=== PATIENT | male | born 1975 | race Two or more races ===

== ENCOUNTER 2020-03-17 17:20 | Inpatient (IN) | payer OTHER ==
[~2020-03-17] VITALS: Ht 177.8 cm; Wt 98.7 kg
[2020-03-17 18:58] LABS: Eosinophils # (auto) 0 10 ^3/uL (0-0.8); Eosinophils % (auto) 0.2 % (0.0-7.0); Hematocrit 30.7 % (41.0-53.0); Hemoglobin 10.4 g/dL (13.5-17.5); Lymphocytes # (auto) 0.7 10 ^3/uL (0.4-5.4); Monocytes # (auto) 0.7 10 ^3/uL (0-1.3); White Blood Cell 15.1 10^3/uL (4.4-10.8)
[2020-03-17 19:00] LABS: Basophils # (auto) 0.1 10 ^3/uL (0-0.2); Basophils % (auto) 0.5 % (0.0-2.0); Lymphocytes % (auto) 4.4 % (10.0-50.0); Mean Corpuscular Hemoglobin 27.8 pg (28.0-32.0); Mean Corpuscular Hgb Conc. 33.7 g/dL (32.0-36.0); Mean Corpuscular Volume 82.6 fL (80.0-100.0); Monocytes % (auto) 4.8 % (0.0-12.0); Neutrophils # (auto) 13.5 10 ^3/uL (1.6-8.6); Neutrophils % (auto) 90.1 % (37.0-80.0); Platelet Count (auto) 611 10^3/uL (140-450); Red Blood Cells 3.72 10^6/uL (4.5-5.90); Red Cell Distribution Width 14.2 % (11.8-14.3)
[2020-03-17 19:15] LABS: Albumin 2.5 g/dL (3.4-5.0); Anion Gap 8 (5-15); Blood Urea Nitrogen 14 mg/dL (7-18); Carbon Dioxide 27 mmol/L (21-32); Chloride 101 mmol/L (98-107); Glucose 323 mg/dL (74-106); Sodium 136 mmol/L (136-145)
[2020-03-17 19:22] LABS: Alanine Aminotransferase 11 U/L (16-61); Alkaline Phosphatase 152 U/L (45-117); Aspartate Aminotransferase 11 U/L (15-37); Bilirubin, Total 0.4 mg/dL (0.2-1.0); GFR African American 70 mL/min; GFR Non-African American 58 mL/min
[2020-03-17 19:26] LABS: Potassium 2.5 mmol/L (3.5-5.1)
[2020-03-17] MEDS ORDERED: SODIUM CHLORIDE 0.9% 1,000 ML IV ONE (21:00)
[2020-03-17] MEDS ORDERED: ONDANSETRON HCL 4 MG/2 ML VIAL IV ONE (21:00)
[2020-03-17] MEDS ORDERED: SOD CHL 0.9%/ KCL 40MEQ 1,000 ML IV ONE (21:45)
[2020-03-17] MEDS ORDERED: POTASSIUM CHL 20 Meq TABLET PO ONE (21:45)
[2020-03-17 21:52] LABS: Basophils # (auto) 0.1 10 ^3/uL (0-0.2); Basophils % (auto) 0.4 % (0.0-2.0); Eosinophils # (auto) 0 10 ^3/uL (0-0.8); Eosinophils % (auto) 0.1 % (0.0-7.0); Hematocrit 28.7 % (41.0-53.0); Hemoglobin 9.6 g/dL (13.5-17.5); Lymphocytes # (auto) 1.1 10 ^3/uL (0.4-5.4); Mean Corpuscular Hemoglobin 27.8 pg (28.0-32.0); Mean Corpuscular Hgb Conc. 33.5 g/dL (32.0-36.0); Mean Corpuscular Volume 82.9 fL (80.0-100.0); Monocytes # (auto) 0.7 10 ^3/uL (0-1.3); Monocytes % (auto) 5.5 % (0.0-12.0); Neutrophils # (auto) 11.6 10 ^3/uL (1.6-8.6); Platelet Count (auto) 550 10^3/uL (140-450); Red Blood Cells 3.46 10^6/uL (4.5-5.90); Red Cell Distribution Width 14.4 % (11.8-14.3); White Blood Cell 13.5 10^3/uL (4.4-10.8)
[2020-03-17 22:10] LABS: Albumin 2.4 g/dL (3.4-5.0); BUN/Creatinine Ratio 10.1; Calcium 8.5 mg/dL (8.5-10.1); Magnesium 1.7 mg/dL (1.6-2.6)
[2020-03-17 22:13] LABS: Bilirubin, Total 0.3 mg/dL (0.2-1.0); Total Protein 7.6 g/dL (6.4-8.2)
[2020-03-17 22:17] LABS: Potassium 2.4 mmol/L (3.5-5.1)
[2020-03-18] MEDS ORDERED: DOCUSATE SOD 100 MG CAP PO PRN (05:15)
[2020-03-18] MEDS ORDERED: ONDANSETRON HCL 4 MG/2 ML VIAL IV PRN (05:15)
[2020-03-18] MEDS ORDERED: ACETAMINOPHEN 325 MG TAB PO PRN (05:15)
[2020-03-18] MEDS ORDERED: MORPHINE SULF INJ 2 MG/ML SYRINGE 1ML IV PRN (05:15)
[2020-03-18] MEDS ORDERED: NITROGLYCERIN 0.4 MG SL TAB SL PRN (05:15)
[2020-03-18] MEDS ORDERED: DEXTROSE (50%) 50ML SYRG IV PRN ×2 (05:15→11:30)
[2020-03-18] MEDS ORDERED: ALBUMIN 5% 50 ML IV ONE (05:15)
[2020-03-18] MEDS ORDERED: SODIUM CHLORIDE 0.9% 1,000 ML IV SCH (05:15)
[2020-03-18] MEDS ORDERED: ALBUMIN 5% 250 ML IV ONE (06:04)
[2020-03-18] MEDS ORDERED: ACCU-CHEK COMFORT CURVE STRIP VI SCH (08:00)
[2020-03-18] MEDS ORDERED: InsuLIN REG 1unit/0.01ml Soln (100units/ml) SC SCH (08:00)
[2020-03-18 08:37] LABS: Basophils # (auto) 0 10 ^3/uL (0-0.2); Basophils % (auto) 0.6 % (0.0-2.0); Hemoglobin 9.3 g/dL (13.5-17.5); Lymphocytes # (auto) 1.2 10 ^3/uL (0.4-5.4); Red Cell Distribution Width 14.5 % (11.8-14.3)
[2020-03-18 08:38] LABS: Eosinophils # (auto) 0 10 ^3/uL (0-0.8); Eosinophils % (auto) 0.5 % (0.0-7.0); Hematocrit 27.6 % (41.0-53.0); Lymphocytes % (auto) 15.1 % (10.0-50.0); Mean Corpuscular Hgb Conc. 33.8 g/dL (32.0-36.0); Mean Corpuscular Volume 82.8 fL (80.0-100.0); Monocytes # (auto) 0.7 10 ^3/uL (0-1.3); Monocytes % (auto) 8.5 % (0.0-12.0); Neutrophils # (auto) 5.8 10 ^3/uL (1.6-8.6); Neutrophils % (auto) 75.3 % (37.0-80.0); Platelet Count (auto) 499 10^3/uL (140-450); Red Blood Cells 3.34 10^6/uL (4.5-5.90); White Blood Cell 7.7 10^3/uL (4.4-10.8)
[2020-03-18 08:56] LABS: Alanine Aminotransferase 12 U/L (16-61); Albumin 2.1 g/dL (3.4-5.0); Alkaline Phosphatase 136 U/L (45-117); Anion Gap 6 (5-15); Aspartate Aminotransferase 10 U/L (15-37); Bilirubin, Total 0.4 mg/dL (0.2-1.0); Blood Urea Nitrogen 10 mg/dL (7-18); Calcium 7.7 mg/dL (8.5-10.1); Carbon Dioxide 25 mmol/L (21-32); Chloride 109 mmol/L (98-107); GFR African American 141 mL/min; GFR Non-African American 116 mL/min; Glucose 167 mg/dL (74-106); Sodium 140 mmol/L (136-145); Total Protein 7.1 g/dL (6.4-8.2)
[2020-03-18] MEDS: cefTRIAXone 1GM/50ML D5W 50 ML IV SCH (09:33)
[2020-03-18] MEDS ORDERED: HEPARIN SODIUM (PORCINE) 5000 UNITS/ML 1ML VIAL SC SCH (10:00)
[2020-03-18] MEDS ORDERED: FAMOTIDINE (10MG/ML) 2ML VL IV SCH (10:00)
[2020-03-18] MEDS: ZINC SULFATE 220mg CAP or TAB PO SCH (10:03)
[2020-03-18] MEDS: MULTIPLE VITAMIN TAB PO SCH (10:03)
[2020-03-18] MEDS: ASCORBIC ACID 500 MG TAB PO SCH ×2 (10:04→22:36)
[2020-03-18] MEDS: FAMOTIDINE 20 MG TAB PO SCH ×2 (10:04→22:35)
[2020-03-18] MEDS: HYDROcodone-ACET 5/325MG TAB PO PRN ×2 (10:14→14:42)
[2020-03-18] MEDS ORDERED: POTASSIUM CHL 20 Meq TABLET PO ONE (11:30)
[2020-03-18] MEDS: ACCU-CHEK COMFORT CURVE STRIP VI SCH ×3 (12:20→22:12)
[2020-03-18] MEDS: InsuLIN REG 1unit/0.01ml Soln (100units/ml) SC SCH ×3 (12:20→22:52)
[2020-03-18] MEDS ORDERED: VANCOMYCIN PER PHARMACY 0 MG IV SCH (12:30)
[2020-03-18] MEDS: MAGNESIUM SULFATE 1GM/100ML 100 ML IV SCH ×2 (12:34→13:02)
[2020-03-18] MEDS: VANCOMYCIN 1GM/250ML 250 ML IV SCH ×2 (14:28→22:35)
[2020-03-18 15:34] LABS: Uric Acid 2.3 mg/dL (3.5-7.2)
[2020-03-18 15:43] LABS: CRP High Sensitivity 10.8 mg/dL (< 0.3)
[2020-03-18] MEDS: MORPHINE SULFATE 4 MG/ML SYR/VIAL IV PRN ×2 (15:47→20:17)
[2020-03-18 15:57] LABS: Urine Bacteria NONE SEEN /hpf (None Seen); Urine Blood Negative /uL (Negative); Urine Hyaline Cast FEW /lpf (0 - 2); Urine Mucus FEW (None Seen); Urine Specific Gravity 1.019 (1.001-1.035); Urine WBC 6 /hpf (0 - 3)
[2020-03-18 16:11] LABS: Alcohol, Urine < 3.0 mg/dL (0-10); Barbiturate Scree,Urine NEGATIVE (NEGATIVE); Benzodiazephine Screen, Urine NEGATIVE (NEGATIVE); Cannabinoid Screen, Urine NEGATIVE (NEGATIVE); Cocaine Screen, Urine NEGATIVE (NEGATIVE); Opiate Scree,Urine POSITIVE (NEGATIVE); Phencyclidine Screen, Urine NEGATIVE (NEGATIVE)
[2020-03-18 16:20] LABS: Amphetamine Screen, Urine POSITIVE (NEGATIVE)
[2020-03-18] MEDS ORDERED: LORazepam 2MG/ML-1ML VIAL IV PRN (17:30)
[2020-03-18] MEDS: ENOXAPARIN SOD 80 MG/0.8ML SYRINGE SC SCH (22:36)
[2020-03-18] MEDS ORDERED: METF-370 PO (23:41)
[2020-03-18] MEDS ORDERED: METH10T GT (23:43)
[2020-03-19] MEDS: MORPHINE SULFATE 4 MG/ML SYR/VIAL IV PRN ×3 (04:08→20:17)
[2020-03-19 04:58] VITALS: BP 127/81
[2020-03-19] MEDS: ACCU-CHEK COMFORT CURVE STRIP VI SCH ×4 (06:31→22:08)
[2020-03-19] MEDS: VANCOMYCIN 1GM/250ML 250 ML IV SCH ×3 (06:40→22:07)
[2020-03-19] MEDS: InsuLIN REG 1unit/0.01ml Soln (100units/ml) SC SCH ×4 (06:43→22:16)
[2020-03-19 06:49] LABS: Basophils # (auto) 0.1 10 ^3/uL (0-0.2); Basophils % (auto) 0.8 % (0.0-2.0); Eosinophils # (auto) 0 10 ^3/uL (0-0.8); Eosinophils % (auto) 0.6 % (0.0-7.0); Hematocrit 24.5 % (41.0-53.0); Hemoglobin 8.6 g/dL (13.5-17.5); Lymphocytes # (auto) 1.4 10 ^3/uL (0.4-5.4); Lymphocytes % (auto) 17.6 % (10.0-50.0); Mean Corpuscular Hgb Conc. 35.1 g/dL (32.0-36.0); Mean Corpuscular Volume 82.4 fL (80.0-100.0); Monocytes # (auto) 0.7 10 ^3/uL (0-1.3); Monocytes % (auto) 8.3 % (0.0-12.0); Neutrophils # (auto) 5.7 10 ^3/uL (1.6-8.6); Neutrophils % (auto) 72.7 % (37.0-80.0); Platelet Count (auto) 433 10^3/uL (140-450); Red Blood Cells 2.97 10^6/uL (4.5-5.90); Red Cell Distribution Width 14.3 % (11.8-14.3); White Blood Cell 7.8 10^3/uL (4.4-10.8)
[2020-03-19 06:52] LABS: INR 1.07 (0.9-1.15); Partial Thromboplastin Time 34.5 sec (23.0-31.2)
[2020-03-19 07:04] LABS: Potassium 3.2 mmol/L (3.5-5.1)
[2020-03-19 07:21] LABS: Albumin 2.1 g/dL (3.4-5.0); Bilirubin, Total 0.3 mg/dL (0.2-1.0); Calcium 7.8 mg/dL (8.5-10.1); Total Protein 6.8 g/dL (6.4-8.2)
[2020-03-19 08:00] VITALS: BP 112/67
[2020-03-19] MEDS: ENOXAPARIN SOD 80 MG/0.8ML SYRINGE SC SCH ×2 (09:22→21:14)
[2020-03-19] MEDS: FAMOTIDINE 20 MG TAB PO SCH ×2 (09:22→21:14)
[2020-03-19] MEDS: MULTIPLE VITAMIN TAB PO SCH (09:23)
[2020-03-19] MEDS: ASCORBIC ACID 500 MG TAB PO SCH ×2 (09:23→21:14)
[2020-03-19] MEDS: ZINC SULFATE 220mg CAP or TAB PO SCH (09:23)
[2020-03-19] MEDS: cefTRIAXone 1GM/50ML D5W 50 ML IV SCH (09:24)
[2020-03-19] MEDS ORDERED: LACTULOSE 20Gm/30ML SOLN PO PRN (10:15)
[2020-03-19] MEDS: HYDROcodone-ACET 5/325MG TAB PO PRN (14:28)
[2020-03-19 16:00] VITALS: BP 120/77
[2020-03-19] MEDS ORDERED: LORazepam 2MG/ML-1ML VIAL IV PRN (21:30)
[2020-03-20] MEDS: MORPHINE SULFATE 4 MG/ML SYR/VIAL IV PRN ×4 (00:43→19:32)
[2020-03-20] MEDS: VANCOMYCIN 1GM/250ML 250 ML IV SCH (04:33)
[2020-03-20 05:00] VITALS: BP 108/73
[2020-03-20] MEDS: ACCU-CHEK COMFORT CURVE STRIP VI SCH ×3 (06:30→21:27)
[2020-03-20] MEDS: InsuLIN REG 1unit/0.01ml Soln (100units/ml) SC SCH ×4 (06:32→21:24)
[2020-03-20 07:36] VITALS: BP 114/75
[2020-03-20] MEDS ORDERED: BUPIVACAINE 0.5% MPF INJ 30ML SDV IJ ONE (08:28)
[2020-03-20] MEDS ORDERED: ceFAZolin 1GM/50ML 0 ML IV ONE (08:43)
[2020-03-20] MEDS: ZINC SULFATE 220mg CAP or TAB PO SCH (08:58)
[2020-03-20] MEDS: MULTIPLE VITAMIN TAB PO SCH (08:58)
[2020-03-20] MEDS: FAMOTIDINE 20 MG TAB PO SCH ×2 (08:59→21:26)
[2020-03-20] MEDS: ASCORBIC ACID 500 MG TAB PO SCH (08:59)
[2020-03-20] MEDS ORDERED: LIDOCAINE 1% (LOCAL ANESTH.) PF 5ml SDV ONE (09:39)
[2020-03-20] MEDS ORDERED: SUCCINYLCHOLINE CHLORIDE 20 MG/ML 10ML VIAL IV ONE (09:39)
[2020-03-20] MEDS ORDERED: GLYCOPYRROLATE 0.2 MG/ML 1ML VIAL ONE (09:42)
[2020-03-20] MEDS ORDERED: MIDAZOLAM HCL 1MG/1ML-2 ML VIAL ONE (09:42)
[2020-03-20] MEDS ORDERED: METOCLOPRAMIDE HCL 5MG/ml INJ 2ml VIAL ONE (09:42)
[2020-03-20] MEDS ORDERED: diphenhdrAMINE HCL 50 MG/1 ML VL ONE (09:42)
[2020-03-20] MEDS ORDERED: PROPOFOL 10 MG/ML 20 ML IV ONE ×2 (09:45)
[2020-03-20] MEDS ORDERED: ONDANSETRON HCL 4 MG/2 ML VIAL IV PRN (10:30)
[2020-03-20] MEDS ORDERED: ACCU-CHEK COMFORT CURVE STRIP VI ONE (10:30)
[2020-03-20] MEDS ORDERED: HYDROmorphone HCL 2 MG/ML VL IV PRN ×2 (10:30)
[2020-03-20] MEDS ORDERED: NALOXONE HCL 0.4 MG/ML VIAL IV PRN (10:30)
[2020-03-20] MEDS ORDERED: hydrALAZINE HCL 20 MG/ML VL IV PRN (10:30)
[2020-03-20] MEDS ORDERED: HYDROmorphone HCL 2 MG/ML VL IV ONE (10:32)
[2020-03-20 11:31] LABS: Basophils # (auto) 0.1 10 ^3/uL (0-0.2); Basophils % (auto) 0.7 % (0.0-2.0); Eosinophils # (auto) 0.1 10 ^3/uL (0-0.8); Eosinophils % (auto) 1.2 % (0.0-7.0); Hematocrit 26.3 % (41.0-53.0); Lymphocytes # (auto) 1.4 10 ^3/uL (0.4-5.4); Lymphocytes % (auto) 17.9 % (10.0-50.0); Mean Corpuscular Hemoglobin 28.1 pg (28.0-32.0); Mean Corpuscular Hgb Conc. 34.1 g/dL (32.0-36.0); Mean Corpuscular Volume 82.5 fL (80.0-100.0); Monocytes # (auto) 0.6 10 ^3/uL (0-1.3); Monocytes % (auto) 7.4 % (0.0-12.0); Neutrophils # (auto) 5.7 10 ^3/uL (1.6-8.6); Neutrophils % (auto) 72.8 % (37.0-80.0); Red Blood Cells 3.19 10^6/uL (4.5-5.90); Red Cell Distribution Width 14.2 % (11.8-14.3); White Blood Cell 7.9 10^3/uL (4.4-10.8)
[2020-03-20 11:57] LABS: Platelet Count (auto) 506 10^3/uL (140-450)
[2020-03-20] MEDS ORDERED: POTASSIUM CHL 20 Meq TABLET PO ONE (12:00)
[2020-03-20 15:56] VITALS: BP 123/69
[2020-03-20] MEDS: HYDROcodone-ACET 5/325MG TAB PO PRN (16:48)
[2020-03-20] MEDS: APIXABAN 5 MG TAB PO SCH (21:27)
[2020-03-20 22:27] VITALS: BP 116/64
[2020-03-21] MEDS: MORPHINE SULFATE 4 MG/ML SYR/VIAL IV PRN ×2 (00:21→19:51)
[2020-03-21 05:00] VITALS: BP 111/64
[2020-03-21] MEDS: InsuLIN REG 1unit/0.01ml Soln (100units/ml) SC SCH ×4 (06:30→21:00)
[2020-03-21] MEDS: ACCU-CHEK COMFORT CURVE STRIP VI SCH ×4 (06:33→21:01)
[2020-03-21 07:38] LABS: Hematocrit 24.9 % (41.0-53.0); Hemoglobin 8.7 g/dL (13.5-17.5)
[2020-03-21 09:00] VITALS: BP 121/69
[2020-03-21] MEDS: APIXABAN 5 MG TAB PO SCH ×2 (09:23→21:00)
[2020-03-21] MEDS: POTASSIUM CHL 20 Meq TABLET PO SCH (09:24)
[2020-03-21] MEDS: FAMOTIDINE 20 MG TAB PO SCH ×2 (09:24→21:01)
[2020-03-21] MEDS: MULTIPLE VITAMIN TAB PO SCH (09:24)
[2020-03-21] MEDS: HYDROcodone-ACET 5/325MG TAB PO PRN ×3 (12:16→21:12)
[2020-03-21 12:47] VITALS: BP 116/71
[2020-03-21 16:57] VITALS: BP 120/71
[2020-03-21 22:00] VITALS: BP 120/78
[2020-03-22] MEDS: HYDROcodone-ACET 5/325MG TAB PO PRN ×6 (01:06→23:36)
[2020-03-22 05:00] VITALS: BP 106/67
[2020-03-22] MEDS: ACCU-CHEK COMFORT CURVE STRIP VI SCH ×4 (06:02→21:05)
[2020-03-22] MEDS: InsuLIN REG 1unit/0.01ml Soln (100units/ml) SC SCH ×4 (06:03→21:06)
[2020-03-22 08:00] VITALS: BP 124/73
[2020-03-22 08:10] LABS: Hemoglobin 8.6 g/dL (13.5-17.5)
[2020-03-22 08:14] LABS: Hematocrit 25.1 % (41.0-53.0)
[2020-03-22] MEDS: APIXABAN 5 MG TAB PO SCH ×2 (10:54→21:05)
[2020-03-22] MEDS: FAMOTIDINE 20 MG TAB PO SCH ×2 (10:55→21:05)
[2020-03-22] MEDS: MULTIPLE VITAMIN TAB PO SCH (10:55)
[2020-03-22] MEDS: POTASSIUM CHL 20 Meq TABLET PO SCH (10:55)
[2020-03-22] MEDS ORDERED: POTA-220 PO (13:16)
[2020-03-22] MEDS ORDERED: APIX5TAB PO (13:16)
[2020-03-22] MEDS ORDERED: AMOX-277 PO (13:27)
[2020-03-22] MEDS ORDERED: AMOXICILLIN/CLAVUL 875 MG TAB PO ONE (13:30)
[2020-03-22 17:18] VITALS: BP 125/84
[2020-03-22] MEDS: AMOXICILLIN/CLAVUL 875 MG TAB PO SCH (21:05)
[2020-03-22 22:03] VITALS: BP 116/77
[2020-03-23] MEDS: HYDROcodone-ACET 5/325MG TAB PO PRN ×3 (04:43→13:33)
[2020-03-23 05:58] VITALS: BP 122/75
[2020-03-23] MEDS: ACCU-CHEK COMFORT CURVE STRIP VI SCH ×3 (05:59→17:32)
[2020-03-23] MEDS: InsuLIN REG 1unit/0.01ml Soln (100units/ml) SC SCH ×3 (06:02→17:33)
[2020-03-23 09:00] VITALS: BP 113/77
[2020-03-23] MEDS: MULTIPLE VITAMIN TAB PO SCH (09:45)
[2020-03-23] MEDS: APIXABAN 5 MG TAB PO SCH (09:45)
[2020-03-23] MEDS: POTASSIUM CHL 20 Meq TABLET PO SCH (09:45)
[2020-03-23] MEDS: FAMOTIDINE 20 MG TAB PO SCH (09:46)
[2020-03-23] MEDS: AMOXICILLIN/CLAVUL 875 MG TAB PO SCH (10:05)
[2020-03-23 13:00] VITALS: BP 106/61
[2020-03-23 15:46] VITALS: BP 124/72
[2020-03-27] MEDS ORDERED: APIXABAN 5 MG TAB PO SCH (22:00)
== END 2020-03-23 20:48 | disposition home or self-care (01) | DRG 351 ==
LOC: EDBD 17:20 → ER 17:44 → EDBD 17:44 → TELE 17:45 → TELE-CENTR 03-18 21:15
PROVIDERS: ADMIT Nurse Practitioner Family; ATTEND Internal Medicine
PROC: 0S9C3ZZ Drainage of Right Knee Joint, Percutaneous Approach (ICD-10-PCS; principal; 2020-03-20 09:39)
DX: M71.21 Synovial cyst of popliteal space [Baker], right knee (principal); M25.461 Effusion, right knee; E43 Unspecified severe protein-calorie malnutrition; E11.65 Type 2 diabetes mellitus with hyperglycemia; I82.431 Acute embolism and thrombosis of right popliteal vein; E87.6 Hypokalemia; R65.10 Systemic inflammatory response syndrome (SIRS) of non-infectious origin without acute organ dysfunction; R55 Syncope and collapse; L02.415 Cutaneous abscess of right lower limb; F12.90 Cannabis use, unspecified, uncomplicated; F11.20 Opioid dependence, uncomplicated; D63.8 Anemia in other chronic diseases classified elsewhere; I10 Essential (primary) hypertension; E11.42 Type 2 diabetes mellitus with diabetic polyneuropathy; F15.10 Other stimulant abuse, uncomplicated; M17.11 Unilateral primary osteoarthritis, right knee; Z20.822 Contact with and (suspected) exposure to COVID-19; D47.3 Essential (hemorrhagic) thrombocythemia; Z68.31 Body mass index [BMI] 31.0-31.9, adult; Z79.01 Long term (current) use of anticoagulants; Z83.3 Family history of diabetes mellitus; N17.9 Acute kidney failure, unspecified
CPT/HCPCS: 36415; 71045; 73700; 74018; 80053; 80202; 80307; 81001; 82010; 82565; 82962; 83036; 83735; 83880; 84132; 84484; 84550; 85014; 85018; 85025; 85379; 85610; 85652; 85730; 86141; 86850; 86900; 86901; 87040; 87070; 87075; 87205; 93971; 95819; 96361; 96365; 96366; 96367; 96372; 96375; 96376; G0378; J0330; J0690; J0696; J1815; J2250; J2405; J2704; J3490